=== PATIENT | male | born 1975 | race Caucasian/White ===

== ENCOUNTER 2024-06-29 11:06 | Emergency (ER) | payer OTHER, SELFPAY ==
[2024-06-29 11:07] VITALS: BP 152/95
[2024-06-29 11:41] LABS: % Basophils 0.4 % (0-2); % Eosinophils 1.7 % (0-6); % Immature Granulocytes 0.3 % (0-0.5); % Lymphocytes 14.3 % (20.5-51.1); % Monocytes 10.6 % (1.7-9.3); % Neutrophils 72.7 % (42.2-75.2); Absolute Basophils 0.1 10^3/uL (0-0.2); Absolute Eosinophils 0.2 10^3/uL (0-0.7); Absolute Lymphocytes 1.7 10^3/uL (1.2-3.4); Absolute Monocytes 1.3 10^3/uL (0.1-0.6); Absolute Neutrophils 8.7 10^3/uL (1.4-6.5); Hematocrit 44.3 % (39.0-52.0); Hemoglobin 15.3 g/dL (13.0-18.0); Mean Corp Hgb Conc. 34.5 g/dL (33.0-37.0); Mean Corpuscular Hgb 29.9 pg (27.0-31.0); Mean Corpuscular Volume 86.7 fL (80.0-94.0); Mean Platelet Volume 8.7 fL (7.4-10.4); Nucleated Red Blood Cells % 0 % (-); Platelet Count 270 10^3/uL (130-400); Red Blood Cell Count 5.11 10^6/uL (4.70-6.10); Red Cell Dist. Width 13.3 % (11.5-14.5)
[2024-06-29 11:59] LABS: ALT (SGPT) 50 U/L (0-50); AST (SGOT) 24 U/L (17-59); Albumin 4.4 g/dl (3.5-5.0); Alkaline Phosphatase 68 U/L (38-126); Blood Urea Nitrogen 28 mg/dl (9-20); Carbon Dioxide 23 mmol/L (22-30); Chloride 108 mmol/L (98-107); Glucose 93 mg/dl (70-99); Potassium 3.9 mmol/L (3.5-5.1); Sodium 141 mmol/L (135-145); Total Bilirubin 0.6 mg/dl (0.2-1.3); Total Protein 7.3 g/dl (6.3-8.2); eGFR > 60.00
[2024-06-29 12:51] VITALS: BMI 36.0
[2024-06-29 12:52] VITALS: BP 134/92
[2024-06-29 13:00] VITALS: BP 139/94
[2024-06-29] MEDS: NSS 1000 IV ×2 (13:25→14:37)
--- NOTE | 2024-06-29 13:50 | ED.GENMED ---
History of Present Illness
General
Chief Complaint: Abdominal Symptoms
Source: patient
Exam Limitations: none
Time Seen by Provider: 06/29/24 12:49
Nursing documentation reviewed up to this point in time: agreed with
History of Present Illness
History of Present Illness:
48 y/o M with h/o HTN
sleep apnea
here with diarrhea x 3 days
started 1 hour after eating out at a restaurant, a panini
he says that he has had profuse watery diarrhea every 20 minutes and often times has not been able to leave the bathroom
probalby having upward of 30 episodes a day
it is not overly foul smelling, not bloody but a greenish color
no h/o IBS or bowel problems
no pain, just gets bubble guts before he has to go
pt has not had fever, chills, fatigue, weakness, near syncope, cp, sob, vomiting, nausea
Past History
Past History
ED Past Medical History: Other
Social History
Tobacco: Non-smoker
Personal: Single
Living: with family
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
Review of Systems
Review of Systems
Allergies reviewed?: Yes
All Other Systems: Not applicable
Phy Exam
Physical Exam
Physical Exam:
GENERAL: Alert , in no apparent distress
EYE: pupils equal and reactive
NECK: Supple
ENT: o/p clr, mmm.
CARDIAC: Regular rate and rhythm .
LUNGS: Clear breath sounds bilaterally, no acute respiratory distress, no wheezes/rales/rhonchi
ABDOMEN: Soft, without focal tenderness, no r/g, no cvat, hyperactive bowel sounds
NEUROLOGICAL: Alert and oriented, no focal neuro deficits
SKIN: Warm and dry, skin intact.
MUSCULOSKELETAL: No edema, well perfused. neg lam's sign
PSYCH: Normal and appropriate interaction.
Course
Orders/Labs/Results
Orders:
Orders
06/29/24 11:28
Complete Blood Count/With Diff Urgent
Comprehensive Metabolic Panel Urgent
06/29/24 13:23
0.9% Sodium Chloride 1000 ml [Nss] 1,000 ml IV BOLUS
06/29/24 13:57
Norovirus by PCR Urgent
JANETT Source: Feces/Stool
Specimen Description:
Date Specimen was Collected: 06/29/24
Time Specimen was Collected: 13:18
STOOL [C difficile Antigen & Toxins] Urgent
JANETT Source: Feces/Stool
Specimen Description:
Date Specimen was Collected: 06/29/24
Time Specimen was Collected: 13:18
Stool Culture Urgent
JANETT Source: Feces/Stool
Specimen Description:
Date Specimen was Collected: 06/29/24
Time Specimen was Collected: 13:18
06/29/24 14:35
0.9% Sodium Chloride 1000 ml [Nss] 1,000 ml IV BOLUS
Abnormal Lab Results
06/29/24
11:28
WBC 12.0 H 10^3/uL
(4.8-10.8)
Absolute Neuts (auto) 8.7 H 10^3/uL
(1.4-6.5)
Absolute Monos (auto) 1.3 H 10^3/uL
(0.1-0.6)
Lymphocytes % 14.3 L %
(20.5-51.1)
Monocytes % 10.6 H %
(1.7-9.3)
Chloride 108 H mmol/L
(98-107)
BUN 28 H mg/dl
(9-20)
06/29/24 11:28
06/29/24 11:28
Vital Signs
Initial and Last Documented VS:
Initial Vital Signs
Temp Pulse Resp BP Pulse Ox
36.4 C 87 16 152/95 97
06/29/24 11:07 06/29/24 11:07 06/29/24 11:07 06/29/24 11:07 06/29/24 11:07
Last Documented Vital Signs
Temp Pulse Resp BP Pulse Ox
36.7 C 87 16 139/95 99
06/29/24 15:10 06/29/24 15:15 06/29/24 14:05 06/29/24 15:08 06/29/24 15:08
MDM/Problems Addressed
Differential Diagnosis Includes:
viral diarrhea, colitis, c diff, norovirus,
MDM/Problems Addressed:
48 y/o M with diarrhea, no abd pain, no bloody but 3 days
7 pound weight loss
no RF for c diff
no recent travel
well appearing
able to drink fluids
ate pizza yesterday and then had more diarrhea
no vomiting
no fever
well appearing
stable vitals
nontoxic
benign abd exam
stool provided and sent, neg for norovirus and c diff
culture pending
k normal
wbc mild elev 12
felt ok d/c home after 2 liters fluid
can try immdoium
likely viral
*Critical Care Note
Total Time (30-74mins, 75-104mins- exclusive of procedures): Not Applicable
ED Attending Note
-
Portions of this chart may have been created with voice recognition software.� Occasional wrong word or��sound alike� substitutions may have occurred due to the inherent limitations of voice recognition software.
Discharge Plan
Departure
Patient Disposition: Home (Routine Discharge)
Date of Disposition: 06/29/24
Time of Disposition: 15:25
Patient with high blood pressure during this ER visit?: No
Condition: Fair
Covid-19: Not Applicable
Discharge Problem:
Diarrhea
Instructions: Diarrhea in teens and adults, [place] diet
Prescriptions:
No Action
rosuvastatin [Crestor] 5 mg Tablet
5 mg PO DAILY
Mounjaro 10 mg/0.5 mL Pen Injector
10 mg SC QWEEK
Referrals:
NONE,* [Family Provider] -
Stand Alone Forms: Return to Work
Activity Restrictions/Additional Instructions:
YOUR DIARRHEA IS PROBABLY VIRAL BUT WE SENT CULTURE ON IT
YOU WILL GET A PHONE CALL IN 2-4 DAYS IF POSITIVE
FOR NOW
TRY THE BRAT DIET (BANANAS, RICE, APPLESAUCE, TOAST)
STAY HYDRATED
YOU CAN TRY A DOSE OF IMMODIUM IF YOU ARE FEELING LIKE THE DIARRHEA IS TOO FREQUENT TO KEEP HYDRATED
START WITH 1 TAB AFTER A DIARRHEA, THEN WAIT FOR 2 MORE DIARRHEAS BEOFRE TRYING A 2ND TAB
RETURN FOR: SEVERE DEHYDRATION, SEVERE PAIN, BLOODY DIARRHEA, FEVER OR ANY CONCERNS.
Interventions
Interventions:
*Risk Screen - Suicide Last Done: 06/29/24 11:10
*General Assessment Last Done: 06/29/24 12:52
*Neglect/Abuse Screening Last Done: 06/29/24 11:10
*ED- Fall Risk Assessment Last Done: 06/29/24 12:52
*ED COVID-19 Vaccine History Last Done: 06/29/24 12:52
*Nursing Disposition Last Done: 06/29/24 15:39
XE-Zgepyz-Nxvpspyyvy Assessment Last Done: 06/29/24 15:12
Discharge Date and Time
Discharge Date/Time: 06/29/24 15:41
Print Language: SPANISH
[2024-06-29 14:00] VITALS: BP 140/88
[2024-06-29 15:08] VITALS: BP 139/95
== END 2024-06-29 15:41 | disposition home or self-care (01) ==
LOC: EMR 11:06
PROVIDERS: Emergency Medicine; EMERGENCY PHYSICIAN Emergency Medicine
DX: R19.7 Diarrhea, unspecified (principal); I10 Essential (primary) hypertension; G47.30 Sleep apnea, unspecified
CPT/HCPCS: 99283; 96360; 96361; 80053; 85025; 87045; 87046; 87324; 87427; 87449; 87798